=== PATIENT | female | born 1955 | race Caucasian/White ===

== ENCOUNTER 2017-02-10 12:04 | Emergency (ER) | payer OTHER ==
[~2017-02-10 12:04] MED LIST: ALBUTEROL20 ml INH; ASPIRIN PO; ASPIRIN81 M2 PO; ATENOLOL PO; CLOPIDOGREL75 MG PO; COREG6.25 MG PO; IMDUR-ER30 M1 PO; LISINOPRIL10 MG PO; LYRICA75 MG PO; MOBIC15 MG PO; NEURONTIN600 MG PO; NITROGLYCERIN0.4 MG SL; NITROSTAT0.4 MG SL; NORVASC PO; PLAVIX PO; PLETAL100 MG DOB; PRAVASTATIN SOD40 MG PO; ZESTRIL10 M1 PO; [UNRECOGNIZED DRUG - OTHER]
[2017-02-10 13:55] LABS: AMPHETAMINE NEG (NEG); BARBITURATES NEG (NEG); BENZODIAZEPINES NEG (NEG); COCAINE NEG (NEG); MARIJUANA NEG (NEG); OPIATES NEG (NEG); TRICYCLIC ANTIDEPRESSANTS NEG (NEG); U METHADONE NEG (NEG)
[2017-02-10 14:17] LABS: BASOPHIL# 0.1 X10e3 (0-0.3); BASOPHIL% 1.4 % (0-2.5); EOSINOPHIL% 0.5 % (0.0-7.0); HEMATOCRIT 48.6 % (35.0-45.0); HEMOGLOBIN 16.1 gm/dL (12.0-16.0); LYMPHOCYTE# 2.4 X10e3 (1.0-3.5); LYMPHOCYTE% 50.6 % (17.0-45.0); MEAN CELL VOLUME 90.4 FL (83-96); MEAN CORPUSCULAR HEMOGLOBIN 29.9 PG (28-34); MEAN CORPUSCULAR HGB CONC 33.1 g/dL (30-36); MONOCYTE# 0.4 X10e3 (0-1.0); MONOCYTE% 8.5 % (3.0-12.0); NEUTROPHIL# 1.9 X10e3 (1.5-7.1); PLATELET COUNT 199 X10e3 (140-420); RED BLOOD COUNT 5.37 X10e (3.90-5.30); RED CELL DISTRIBUTION WIDTH 15.4 % (11.0-15.5); WHITE BLOOD COUNT 4.8 X10e3 (4.0-10.5)
[2017-02-10 14:20] LABS: DIFF IND YES
[2017-02-10 14:55] LABS: PLATELET ESTIMATE NORMAL (NORMAL); RBC NORMAL YES
[2017-02-10 15:10] LABS: ACETAMINOPHEN <10 ug/mL; ALBUMIN SERUM 3.8 g/dL (3.5-5.0); ALKALINE PHOSPHATASE 79 U/L (32-92); ALT (SGPT) 28 U/L (10-40); AST (SGOT) 30 U/L (10-42); BILIRUBIN, DIRECT 0.1 mg/dL (0.0-0.2); BILIRUBIN,INDIRECT 0.3 mg/dL (0.0-0.9); BILIRUBIN,TOTAL 0.4 mg/dL (0.2-2.0); BLOOD UREA NITROGEN 10 mg/dL (9-23); BUN/CREATININE RATIO 16.66; CALCIUM SERUM 8.5 mg/dL (8.4-10.2); CARBON DIOXIDE 20 mmol/L (22-31); CHLORIDE 96 mmol/L (100-111); CREATININE SERUM 0.6 mg/dL (0.6-1.4); GLOM FILT RATE Estimated 99.8 mL/min (>60); GLUCOSE FASTING 188 mg/dL (70-110); POTASSIUM 3.9 mmol/L (3.5-5.1); SALICYLATE <4.0 mg/dL; SODIUM 135 mmol/L (135-145)
[2017-02-10 15:12] LABS: ALCOHOL BLOOD 244 mg/dL (0)
== END 2017-02-11 10:45 ==
LOC: CED 12:04
PROVIDERS: Emergency Medicine
DX: T14.91 Suicide attempt (principal); F17.210 Nicotine dependence, cigarettes, uncomplicated; E11.9 Type 2 diabetes mellitus without complications; I10 Essential (primary) hypertension; J44.9 Chronic obstructive pulmonary disease, unspecified; I25.2 Old myocardial infarction; Z95.1 Presence of aortocoronary bypass graft; Z95.5 Presence of coronary angioplasty implant and graft; Z79.899 Other long term (current) drug therapy; Z79.82 Long term (current) use of aspirin; Z79.01 Long term (current) use of anticoagulants
CPT/HCPCS: 36415; 80048; 80076; 80307; 85025; 96374; 99285; G0480; J2405

== ENCOUNTER 2017-02-11 11:16 | Inpatient (IN) | payer OTHER ==
--- NOTE | ~2017-02-11 | TN ---
Unit #: [id number] #: [id number] Patient: CAROL BEDOLLA [id number] [facility] [address] [place] [address] [id number] I MR#: [id number] NAME: CAROL BEDOLLA ROOM: [facility] Age: 61 Sex: F Admission Date: 02/11/2017 : 1955 Discharge Date: 02/16/2017 Attending Physician: Sanaz David M.D. Primary Care Physician: Laurence Gonsalez M.D. LOC TRANSFER NOTE DATE OF SERVICE: 02/21/2017 DATE OF SERVICE 02/21/2017. HISTORY OF PRESENT ILLNESS Ms. Bedolla is a 61-year-old white female with history of major depressive disorder and alcohol dependence, who was stepped down to the outpatient treatment program from the adult inpatient psychiatric unit, where she was hospitalized under my care from 02/11/2017 to 02/16/2017 and initially was transferred to us from [facility] with suicidal ideations and alcohol dependence and was medically detoxed and stabilized on a combination of Seroquel and Effexor and was stepped down to the outpatient treatment program. When seen by me, the patient reports that she has been staying with her sister, who just recently had a baby and she has been helping her with her 7 years old special need child as well and has been staying busy and reports that she has been having some significant anxiety, but has not relapsed and wants to work on her sobriety. SUBSTANCE ABUSE HISTORY The patient reports history of alcohol, cannabis, cocaine, acid, opioids, and amphetamine abuse, and currently, alcohol appears to be her drug of choice as she mentioned that she was drinking half a pint and 12 pack a day before she came to the hospital. PAST PSYCHIATRIC HISTORY The patient has had a history of inpatient psychiatric hospitalization at [facility], and recently got out of [facility] and is known to us from previous encounter and carries a diagnosis of mood disorder and is on a combination of Seroquel and Effexor. PAST MEDICAL HISTORY The patient's medical history is significant for coronary artery bypass surgery, coronary artery disease, hypertension, COPD, and diabetes mellitus. ALLERGIES No known medication allergies. PERSONAL AND SOCIAL HISTORY A 61-year-old white female, who reports that she lives at home with her Unit #: [id number] #: [id number] Patient: CAROL BEDOLLA daughter and 7 years old grandson and is currently single and unemployed. MENTAL STATUS EXAMINATION Middle-aged white female, who was casually dressed with fair personal hygiene, appears to be in no acute distress or discomfort. She was awake and alert on interaction with intact orientation to time, place, and person. Her mood was anxious and depressed with a congruent affect. Her speech was slow and goal directed. She denies any suicidal or homicidal ideations and also denies any auditory or visual hallucinations. Her insight and judgment remain slightly impaired. DIAGNOSTIC IMPRESSION Psychiatric: Major depressive disorder, recurrent, moderate, without psychotic features and alcohol dependence, moderate. Medical: Coronary artery bypass surgery, coronary artery disease, hypertension, chronic obstructive pulmonary disease, and diabetes mellitus. Stressors: Moderate psychosocial stressors. TREATMENT PLAN 1. The patient has presented with a history of mood disorder and substance abuse. We will recommend enrolling her into the outpatient treatment program and maintaining her on her current medications. We will monitor her response and make further adjustments as needed. 2. Supportive therapy was provided to the patient. 3. Safe, structured, and nourishing environment will be provided. ESTIMATED LENGTH OF STAY 14 to 21 days. ABILITY TO HELP SELF Limited. WILLINGNESS TO HELP SELF The patient appears to be willing to help self. STRENGTHS 1. Communicative. 2. Cooperative. PROBLEMS 1. Chronic dysphoric symptoms. 2. Chronic chemical dependency. 3. Poor social support system. DISCHARGE CRITERIA This will be contingent upon the patient's ability to show resolution of her depression and anxiety and her ability to stay safe to herself, particularly after discharge from the hospital. Dictated by... Andrez John/dre TD: 02/21/2017 11:48 JOB #: [id number] Unit #: [id number] #: [id number] Patient: CAROL BEDOLLA LOC TRANSFER NOTE Page 1 of 1 X Sanaz David MD X LOC TRANSFER NOTE
--- NOTE | ~2017-02-11 | PN ---
Unit #: [id number] #: [id number] Patient: CAROL BEDOLLA [id number] [facility] [address] [place] [address] [id number] I MR#: [id number] NAME: CAROL BEDOLLA ROOM: [facility] Age: 61 Sex: F Admission Date: 02/11/2017 : 1955 Attending Physician: Sanaz David M.D. Admitting Physician: Sanaz David M.D. Primary Care Physician: Andrez Khoury PROGRESS NOTES DATE 02/14/2017 DISCUSSION Ms. Bedolla is a 61-year-old white female with mood disorder who was seen today and chart was reviewed and case was discussed with the staff. She has been anxious, withdrawn, depressed and rather seclusive to herself. Meanwhile, she has been cooperative with treatment recommendations and has been taking medications and tolerating them fairly well with no reported side effects. MENTAL STATUS EXAMINATION Middle-aged white female who was casually dressed with fair personal hygiene and appears to be in no acute distress or discomfort. She was awake and alert with intact orientation. Her mood was anxious and depressed with congruent affect. She denies any suicidal or homicidal ideations. Her insight and judgement remains slightly impaired. TREATMENT PLAN 1. Will continue on current medications and treatment protocol. Will monitor her response to the medications and make further adjustments as needed. 2. Will continue to follow up. Dictated by... Andrez John/dwight TD: 02/16/2017 21:25 JOB #: [id number] Unit #: [id number] #: [id number] Patient: CAROL BEDOLLA PROGRESS NOTES Page 1 of 1 X Sanaz David MD X PROGRESS NOTE
--- NOTE | ~2017-02-11 | PN ---
Unit #: [id number] #: [id number] Patient: CAROL BEDOLLA [id number] [facility] [address] [place] [address] [id number] I MR#: [id number] NAME: CAROL BEDOLLA ROOM: [facility] Age: 61 Sex: F Admission Date: 02/11/2017 : 1955 Attending Physician: Sanaz David M.D. Admitting Physician: Sanaz David M.D. Primary Care Physician: Andrez Khoury PROGRESS NOTES DATE 02/12/2017. DISCUSSION Ms. Carol Bedolla is a 61-year-old white female who was seen today and chart reviewed. Her case was discussed with the staff. So far she has not shown any agitation or irritability, but has been exhibiting poor insight into her situation. She reports she has been taking her medication and tolerating them fairly well. She does not report any side effects. MENTAL STATUS EXAMINATION Middle-aged white female who is casually dressed and with fair personal hygiene. She appears to be in no acute distress or discomfort. She remains alert and oriented. Her mood is anxious and (1) . Her speech is slow. She reports some suicidal ideation, but denies any homicidal ideation. (2) . TREATMENT PLAN 1. Will continue with current medication and treatment protocol. Will optimize medication. Will monitor her response to medication treatment. 2. Will follow up her. Dictated by... Andrez John/gz TD: 02/13/2017 10:46 JOB #: [id number] Unit #: [id number] #: [id number] Patient: CAROL BEDOLLA PROGRESS NOTES Page 1 of 1 X Sanaz David MD PROGRESS NOTE
--- NOTE | ~2017-02-11 | HP ---
Unit #: [id number] #: [id number] Patient: DAISY BAUMANN [id number] [facility] [address] [place] [address] [id number] I MR#: [id number] NAME: DAISY BAUMANN ROOM: 76 Age: 61 Sex: F Admission Date: 02/11/2017 : 1955 Attending Physician: Sanaz David M.D. Admitting Physician: Sanaz David M.D. Primary Care Physician: Laurence Gonsalez M.D. HISTORY AND PHYSICAL HISTORY OF PRESENT ILLNESS Daisy is a 61 year old admitted to [facility] because of her abuse of alcohol. PAST MEDICAL HISTORY 1. History of alcohol abuse 2. Coronary artery disease a. Five vessel CABG b. Angioplasty with stents c. History of SC 3. Peripheral vascular disease a. Bilateral fem pop bypass 4. High blood pressure 5. Hyperlipidemia 6. COPD PAST SURGICAL HISTORY 1. As above 2. T & A 3. Tubal ligation ALLERGIES No known drug allergies. SOCIAL HISTORY Smokes one pack per day. Binge drinks frequently and denies illicit drug use. FAMILY HISTORY Medically noncontributory. REVIEW OF SYSTEMS CONSTITUTIONAL: No fever or chills. HEENT: Denies any sore throat, ear pain or runny nose. CARDIOVASCULAR: Denies chest pain, irregular heart rhythm or palpitations. CHEST: Denies shortness of breath or cough. No hemoptysis. GASTROINTESTINAL: Denies nausea, vomiting, diarrhea or chronic constipation. ENDOCRINE: Denies history of increased thirst or urination. No recent significant weight loss or gain. GENITOURINARY: Denies dysuria, frequency, or hematuria. SKIN: Denies any rashes. HEMATOLOGIC: Denies history of increased bleeding or bruising. Unit #: [id number] #: [id number] Patient: DAISY BAUMANN MUSCULOSKELETAL: Denies any hot, swollen joints. No generalized muscle pain. NEUROLOGIC: Denies problems with vision or speech. No frequent, severe headaches. No numbness, tingling or weakness in any extremities. Denies loss of bladder or bowel control. CURRENT MEDICATIONS 1. Detox protocol 2. Norvasc 5 mg q day 3. Zestril 20 mg q day 4. Plavix 75 mg q day 5. Neurontin 300 mg b.i.d. 6. Coreg 12.5 mg b.i.d. PHYSICAL EXAMINATION GENERAL: Alert, well-nourished, in no apparent distress. VITAL SIGNS: Blood pressure 150/82, heart rate 80, respirations 16, temperature 98.6. WEIGHT: 155 pounds. HEIGHT: 5'7". SKIN: Warm and dry without rash or lesion. HEENT: Normocephalic. TMs not viewed. Oral and nasal passages clear. Conjunctivae clear. Pupils equal, round and reactive to light and accommodation. Extraocular movements intact. NECK: Supple without lymphadenopathy or thyromegaly. HEART: Regular rate and rhythm without murmur. LUNGS: Clear. ABDOMEN: Soft, nontender. : Not done. EXTREMITIES: No evidence of cyanosis, clubbing or edema. Moves all extremities without focal deficit. NEUROLOGICAL: Grossly within normal limits. Cranial Nerves: II: Visual pereira are intact. III, IV AND : Extraocular movements are intact. Pupils are equal, round and reactive to light. V: Facial sensation is grossly normal. VII: Facial movements and expression are normal. VIII: Auditory acuity grossly intact. IX, X: Uvula is midline. Phonation is normal. XI: Patient shrugs shoulders and turns head normally. XII: Tongue protrudes in the midline. Sensory and Motor Function: Sensory and motor sensation is grossly normal. Motor: moves all extremities well. Coordination: Gait is normal. Deep Tendon Reflexes: Intact. IMPRESSION Psychiatric admission RECOMMENDATIONS PSYCHIATRIC: Per psychiatrist. MEDICAL: 1. I see no contraindications to participating in facility's activities. 2. Detox per protocol 3. Continue Norvasc, Zestril, Plavix and Coreg. MEDICAL PROGNOSIS Good. MEDICAL CONDITION Unit #: [id number] #: [id number] Patient: DAISY BAUMANN. Dictated by... Nancie Colón P.A.-C. for Andrez Ramsey/marilee TD: 02/12/2017 03:13 JOB #: [id number] HISTORY AND PHYSICAL Page 1 of 1 X Nancie Colón HISTORY AND PHYSICAL
--- NOTE | ~2017-02-11 | DS ---
Unit #: [id number] #: [id number] Patient: CAROL BEDOLLA [id number] [place] [address] [id number] I MR#: [id number] NAME: CAROL BEDOLLA ROOM: [facility] Age: 61 Sex: F Admission Date: 02/11/2017 : 1955 Discharge Date: 02/16/2017 Attending Physician: Sanaz David M.D. Primary Care Physician: Laurence Gonsalez M.D. DISCHARGE SUMMARY REASON FOR ADMISSION Ms. Bedolla is a 61-year-old woman who was admitted after she presented to [facility], reporting increasing alcohol use and suicidal ideation. After assessment there, she was admitted under the care of Dr. David to [facility]. DIAGNOSTIC STUDIES LABORATORY RESULTS: Please see hospital chart. HOSPITAL COURSE The patient was admitted and placed on suicide precautions and the alcohol detox protocol. Her home psychiatric medications were restarted with good tolerance. She participated appropriately in unit groups and activities and demonstrated no further suicidal ideation, and adamantly denied thoughts of harming others. She was discharged in stable condition. DISCHARGE DIAGNOSES AXIS I: Major depression, recurrent; alcohol dependence. AXIS II: No diagnosis. AXIS III: Coronary artery disease, hypertension, chronic obstructive pulmonary disease, diabetes. AXIS IV: AXIS V: DISCHARGE INSTRUCTIONS Follow up with [facility] and vocational counseling. She was also offered the opportunity to attend the intensive outpatient program at this facility. DISCHARGE MEDICATIONS Effexor XR 75 mg daily for depression, Seroquel 100 mg at bedtime for insomnia. Primary care medicines were Plavix 75 mg daily for anticoagulation, Coreg 12.5 mg b.i.d. for hypertension, lisinopril 20 mg daily for hypertension, Norvasc 5 mg daily for hypertension, and Neurontin 300 mg t.i.d. for neuropathy. CONDITION AT DISCHARGE Improved. PROGNOSIS Fair to good. Unit #: [id number] #: [id number] Patient: CAROL BEDOLLA DIET AND ACTIVITY Per primary care doctor. Dictated by... Bertrand Gleason M.D. DICK/dre TD: 02/16/2017 14:22 JOB #: [id number] DISCHARGE SUMMARY Page 1 of 1 X Bertrand Gleason MD DISCHARGE SUMMARY
--- NOTE | ~2017-02-11 | PN ---
Unit #: [id number] #: [id number] Patient: CAROL BEDOLLA [id number] [facility] [address] [place] [address] [id number] MR#: [id number] NAME: CAROL BEDOLLA ROOM: [facility] Age: 61 Sex: F Admission Date: 02/11/2017 : 1955 Attending Physician: Sanaz David M.D. Admitting Physician: Sanaz David M.D. Primary Care Physician: Andrez Khoury PROGRESS NOTES DATE 02/15/2017 DISCUSSION Ms. Bedolla is a 61-year-old white female who was seen today and chart was reviewed and case was discussed with the staff. She has been anxious and reports that she is ready to leave and that she has talked to her daughter and that she is ready for her to come home. However, social worker health services has left me a note as of last evening that family does not feel safe having her come home and wants her to be sent to a residential level of care. MENTAL STATUS EXAMINATION Middle-aged white female who was casually dressed with fair personal hygiene and appears to be in no acute distress or discomfort. She was awake and alert on interaction with intact orientation. Her mood was anxious with congruent affect. She denies any suicidal or homicidal ideations. Her insight and judgement remains slightly impaired. TREATMENT PLAN 1. Will continue on current medications and treatment protocol. Will monitor her response and make further adjustments as needed. 2. Will continue to follow up. Dictated by... Andrez John/dwight TD: 02/18/2017 08:14 JOB #: [id number] Unit #: [id number] #: [id number] Patient: CAROL BEDOLLA PROGRESS NOTES Page 1 of 1 X Sanaz David MD PROGRESS NOTE
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
[2017-02-12 09:47] LABS: BASOPHIL% 0.9 % (0-2.5); EOSINOPHIL# 0.1 X10e3 (0-0.7); EOSINOPHIL% 2.5 % (0.0-7.0); HEMATOCRIT 48.1 % (35.0-45.0); HEMOGLOBIN 15.7 gm/dL (12.0-16.0); LYMPHOCYTE# 2.1 X10e3 (1.0-3.5); LYMPHOCYTE% 40.3 % (17.0-45.0); MEAN CELL VOLUME 90.4 FL (83-96); MEAN CORPUSCULAR HEMOGLOBIN 29.6 PG (28-34); MEAN CORPUSCULAR HGB CONC 32.7 g/dL (30-36); MEAN PLATELET VOLUME 8.9 FL (6.5-11.5); MONOCYTE# 0.4 X10e3 (0-1.0); MONOCYTE% 8.7 % (3.0-12.0); NEUTROPHIL# 2.5 X10e3 (1.5-7.1); NEUTROPHIL% 47.6 % (40-75); PLATELET COUNT 207 X10e3 (140-420); RED BLOOD COUNT 5.32 X10e (3.90-5.30); RED CELL DISTRIBUTION WIDTH 14.8 % (11.0-15.5); WHITE BLOOD COUNT 5.2 X10e3 (4.0-10.5)
[2017-02-12 09:54] LABS: ALBUMIN SERUM 3.9 g/dL (3.5-5.0); BILIRUBIN,TOTAL 0.9 mg/dL (0.2-2.0); BUN/CREATININE RATIO 16.25; CALCIUM SERUM 9.7 mg/dL (8.4-10.2); CREATININE SERUM 0.8 mg/dL (0.6-1.4); GLOM FILT RATE Estimated 80.8 mL/min (>60); POTASSIUM 4.3 mmol/L (3.5-5.1)
[2017-02-12 09:55] LABS: DIFF IND NO
[2017-02-12 10:13] LABS: URINE APPEARANCE CLEAR; URINE BILIRUBIN NEG (NEG); URINE BLOOD 2+ (NEG); URINE COLOR YELLOW; URINE GLUCOSE >1000 MG/DL (NEG); URINE KETONE TRACE (NEG); URINE LEUKOCYTE ESTERASE NEG (NEG); URINE NITRATE NEG (NEG); URINE PH 6.5 (5-8); URINE PROTEIN NEG (NEG); URINE SPECIFIC GRAVITY 1.034 (1.003-1.035)
[2017-02-12 10:15] LABS: U HYALINE CASTS AUWI 0-2 /[LPF]; URINE BACTERIA AUWI NEG (NEGATIVE); URINE SQUAMOUS EPITHELIAL CELL OCC /[HPF]; UWBCS1 AUWI 0-2 (0-5)
[2017-02-12 10:35] LABS: AMPHETAMINE NEG (NEG); BARBITURATES NEG (NEG); BENZODIAZEPINES NEG (NEG); COCAINE NEG (NEG); MARIJUANA NEG (NEG); OPIATES NEG (NEG); TRICYCLIC ANTIDEPRESSANTS NEG (NEG); U METHADONE NEG (NEG)
== END 2017-02-16 12:25 | disposition home or self-care (01) | DRG 885 ==
LOC: P1E 11:16
PROVIDERS: Psychiatry & Neurology Psychiatry
PROC: HZ2ZZZZ Detoxification Services for Substance Abuse Treatment (ICD-10-PCS; principal; 2017-02-11)
DX: F33.1 Major depressive disorder, recurrent, moderate (principal); E11.9 Type 2 diabetes mellitus without complications; R45.851 Suicidal ideations; F10.20 Alcohol dependence, uncomplicated; I25.10 Atherosclerotic heart disease of native coronary artery without angina pectoris; Z56.0 Unemployment, unspecified; Z95.1 Presence of aortocoronary bypass graft; I10 Essential (primary) hypertension; J44.9 Chronic obstructive pulmonary disease, unspecified; I73.9 Peripheral vascular disease, unspecified; F17.210 Nicotine dependence, cigarettes, uncomplicated; Z95.5 Presence of coronary angioplasty implant and graft; I25.2 Old myocardial infarction; E78.5 Hyperlipidemia, unspecified; Z79.01 Long term (current) use of anticoagulants
CPT/HCPCS: 80053; 80307; 81003; 85025; 86592

== ENCOUNTER → 2017-07-18 | Outpatient (CLI) | payer OTHER ==
--- NOTE | ~2017-07-18 | US83 ---
[facility] A Service of [facility] & [facility] RADIOLOGY TEXT RESULTS PATIENT: CAROL BAUMANN LOCATION: CNIV : 59 UNIT #: [id number] AGE: [address]: Dwaine Soliz MD SEX: F ORDER DR: [id number] [facility] [address] [place], [place] [address] [id number] O MR#: [id number] Acc #: [id number] NAME: CAROL BAUMANN : 1955 SEX: F STUDY DATE/TIME: 07/18/2017 11:19 UNIT: CNIV ROOM: STUDY DESCRIPTION: [employer] Attending Physician: Dwaine Soliz M.D. Referring Physician: Dwaine Soliz M.D. Ordering Physician: Dwaine Soliz M.D. Primary Care Physician: Laurence Gonsalez M.D. MEDICAL IMAGING REPORT This report is preliminary unless electronic signature is present EXAM Lower extremity arterial duplex scan date of examination 07/18/2017 HISTORY Left superficial femoral artery stent. FINDINGS High resolution B-mode imaging and color flow Doppler analysis was performed of the left lower extremity arteries. The left common femoral artery is patent with a peak systolic velocity of 148 cm/sec. There is plaque noted in the proximal left superficial femoral and profunda femoris arteries. Peak systolic velocity in the profunda femoris artery is 81 cm/sec. Peak systolic velocity in the superficial femoral artery in the proximal thigh is 108 cm/sec. There is a stent demonstrated in the superficial femoral artery at the level of the mid thigh. Peak systolic velocity in the proximal portion of the stent is 128 cm/sec, mid stent 105 cm/sec, and distal stent 97 cm/sec. Peak systolic velocity in the superficial femoral artery distal to the stent is 71 cm/sec. The left popliteal artery has a peak systolic velocity of 80 cm/sec, posterior tibial artery 24 cm/sec, anterior tibial artery 49 cm/sec, and peroneal artery 53 cm/sec. IMPRESSION Patent left superficial femoral artery stent. No stenosis is demonstrated. Dictated by... Elliott Chaudhary M.D. THIS IS AN ELECTRONICALLY VERIFIED REPORT Elliott Chaudhary M.D. at 07/19/2017 7:27 AM [facility] A Service of [facility] & [facility] RADIOLOGY TEXT RESULTS PATIENT: CAROL BAUMANN LOCATION: [facility] : [birth year] UNIT #: [id number] AGE: [address]: Dwaine Soliz MD SEX: F ORDER DR: LUDWIG/rnr TD: 07/19/2017 03:55 JOB #: [id number] MEDICAL IMAGING REPORT Page 1 of 1 COPY
--- NOTE | ~2017-07-18 | US136 ---
[facility] A Service of [facility] RADIOLOGY TEXT RESULTS PATIENT: CAROL BAUMANN LOCATION: CNIV : 59 UNIT #: [id number] AGE: [address]: Dwaine Soliz MD SEX: F ORDER DR: [id number] [facility] [address] [place], [place] [address] [id number] O MR#: [id number] Acc #: [id number] NAME: CAROL BAUMANN : 1955 SEX: F STUDY DATE/TIME: 07/18/2017 10:21 UNIT: CNIV ROOM: STUDY DESCRIPTION: U/L Ext Art Study [facility] Attending Physician: Dwaine Soliz M.D. Referring Physician: Dwaine Soliz M.D. Ordering Physician: Dwaine Soliz M.D. Primary Care Physician: Laurence Gonsalez M.D. MEDICAL IMAGING REPORT This report is preliminary unless electronic signature is present EXAM [id number] indices, 07/18/17 HISTORY Left superficial femoral artery stent. FINDINGS The right brachial pressure is 160, and the left brachial pressure is 145. The right dorsalis pedis pressure is 83, posterior tibial 115, and toe 78 for an ankle to brachial index of 0.72. The left dorsalis pedis pressure is 133, posterior tibial 136, and toe 110 for an ankle to brachial index of 0.85. Toe brachial index on the right is 0.49. Toe brachial index on the left is 0.69. Doppler waveform analysis indicates a monophasic signal in the posterior tibial and dorsalis pedis arteries from the right, and a biphasic signal in the posterior tibial and dorsalis pedis arteries on the left. Pulse volume recording tracings demonstrate slight dampening of the amplitude of the signal on the right side compared to the left. IMPRESSION Moderate ischemia of the right leg with an ankle to brachial index of 0.72. Mild ischemia of the left leg with an ankle to brachial index of 0.85. [facility] A Service [facility] RADIOLOGY TEXT RESULTS PATIENT: CAROL BAUMANN LOCATION: CNIV : 59 UNIT #: [id number] AGE: [address]: Dwaine Soliz MD SEX: F ORDER DR: Dictated by... Elliott Chaudhary M.D. THIS IS AN ELECTRONICALLY VERIFIED REPORT Elliott Chaudhary M.D. at 07/19/2017 7:26 AM LUDWIG/johanna TD: 07/19/2017 03:50 JOB #: [id number] MEDICAL IMAGING REPORT Page 1 of 1 COPY
== END | disposition home or self-care (01) ==
LOC: CNIV 10:13
DX: I73.9 Peripheral vascular disease, unspecified (principal); R09.89 Other specified symptoms and signs involving the circulatory and respiratory systems; Z95.828 Presence of other vascular implants and grafts
CPT/HCPCS: 93922; 93926